=== PATIENT | female | born 1970 | race African-American/Black ===

== ENCOUNTER 2017-08-26 07:27 | Inpatient (IN) ==
[2017-08-26] MEDS ORDERED: methylPREDNISolone SOD SUC 125 MG/2 ML VIAL IV STA (07:47)
[2017-08-26] MEDS ORDERED: ALBUTEROL 2.5 MG/3 ML NEB RESP TX STA (07:47)
[2017-08-26] MEDS ORDERED: methylPREDNISolone SOD SUC 125 MG/2 ML VIAL ONE (07:54)
[2017-08-26 10:08] LABS: Basophils % 0.8 % (0.0-0.8); Eosinophils # 0.1 10*3/uL (0.0-0.87); Eosinophils % 1.7 % (0.00-10.9); Hematocrit 37.8 VOL% (35.7-47.0); Hemoglobin 12.9 GM/DL (12.0-16.0); Immature Granulocytes % 0.6 %; Immature Granulocytes Absolute 0.02 #; Lymphocytes # 1.8 10*3/uL (1.4-4.0); Lymphocytes % 49.9 % (21.3-54.2); Mean Corpuscular HGB Conc 34.1 GM/DL (32-36); Mean Corpuscular Hemoglobin 30 PG (27-34); Mean Corpuscular Volume 87.7 FL (87-102); Mean Platelet Volume 10.1 FL (9.6-12.0); Monocytes # 0.5 10*3/uL (0.11-0.8); Monocytes % 13.3 % (1.7-12.7); Neutrophils # 1.2 10*3/uL (1.4-7.4); Neutrophils % 33.7 % (38.7-73.9); Platelet Count 317 T/CUMM (130-400); Red Blood Count 4.31 MC/CUMM (3.8-5.5); Red Cell Distribution Width 15.1 % (9.3-17.3); White Blood Count 3.6 T/CUMM (4-12)
[2017-08-26 10:48] LABS: Eosinophils 1 % (0-10); Lymphocytes 51 % (20-55); Platelet Estimate Adequate; Segmented Neutrophils 33 % (50-85); Total Cells Counted 100
[2017-08-26 10:49] LABS: Giant Platelets Few; Hypochromasia 1+
[2017-08-26 10:50] LABS: Alanine Aminotransferase 21 U/L (13-56); Albumin 3.8 G/DL (3.4-5.0); Alkaline Phosphatase 77 U/L (45-117); Aspartate Amino Transferase 16 U/L (0-37); Bilirubin,Total < 0.39 MG/DL (0.2-1.0); Blood Urea Nitrogen 9 MG/DL (7-18); Calcium 8.8 MG/DL (8.5-10.1); Glucose 96 MG/DL (74-106); Osmolality,Calculated 277.4 MOS/KG (273-304); Potassium 3.7 MMOL/L (3.5-5.1); Sodium 140 MMOL/L (136-145); Total Protein 7.1 G/DL (6.4-8.3)
[2017-08-26] MEDS ORDERED: DOCUSATE SODIUM 100 MG CAPSULE PO PRN (11:34)
[2017-08-26] MEDS ORDERED: MORPHINE 2 MG/1 ML SYRINGE IV PRN (11:34)
[2017-08-26] MEDS ORDERED: ACETAMINOPHEN 325 MG TABLET PO PRN ×2 (11:34→12:17)
[2017-08-26] MEDS ORDERED: ZALEPLON 5 MG CAPSULE PO PRN (11:34)
[2017-08-26] MEDS ORDERED: PROMETHAZINE 25 MG/1 ML VIAL IM PRN (11:34)
[2017-08-26] MEDS ORDERED: diphenhydrAMINE CAP 25 MG CAPSULE PO PRN (11:34)
[2017-08-26] MEDS ORDERED: ONDANSETRON 4 MG/2 ML VIAL IV PRN ×2 (11:34→12:17)
[2017-08-26] MEDS ORDERED: SODIUM CHLORIDE 0.9% 1,000 ML IV SCH (12:00)
[2017-08-26] MEDS ORDERED: methylPREDNISolone SOD SUC 125 MG/2 ML VIAL IV SCH (12:17)
[2017-08-26] MEDS ORDERED: ENOXAPARIN 40 MG/0.4 ML SYRINGE SUBCUT SCH (12:17)
[2017-08-26] MEDS ORDERED: guaiFENesin/DM ER 600-30 MG TABLET PO PRN (12:17)
[2017-08-26] MEDS ORDERED: OMALIZUMAB 150 MG VIAL SUBCUT SCH (12:17)
[2017-08-26] MEDS ORDERED: GLUCAGON 1 MG VIAL IM PRN (12:17)
[2017-08-26] MEDS ORDERED: ALBUTEROL 2.5 MG/3 ML NEB RESP TX PRN (12:17)
[2017-08-26] MEDS ORDERED: DEXTROSE 50% 25 GM/50 ML VIAL IV PRN (12:17)
[2017-08-26] MEDS: SODIUM CHLORIDE 0.9% 1,000 ML IV SCH (12:31)
[2017-08-26] MEDS: MEROPENEM 1,000 MG in SODIUM CHLORIDE 0.9% 50 ML IV SCH (12:31)
[2017-08-26] MEDS: PANTOPRAZOLE 40 MG TABLET PO SCH (12:31)
[2017-08-26] MEDS: INSULIN LISPRO 100 UNIT/ML SUBCUT SCH ×3 (12:32→22:08)
[2017-08-26] MEDS: ALBUTEROL/IPRATROPIUM 3 ML NEB RESP TX SCH ×3 (14:33→19:47)
[2017-08-26] MEDS: ALBUTEROL 2.5 MG/3 ML NEB RESP TX SCH ×7 (14:33→21:43)
[2017-08-26] MEDS: BUDESONIDE/FORMOTEROL 160-4.5 INHALER 6 GM INH SCH ×2 (17:10→22:09)
[2017-08-26] MEDS: methylPREDNISolone SOD SUC 125 MG/2 ML VIAL IV SCH ×2 (17:11→22:08)
[2017-08-26] MEDS ORDERED: BUDESONIDE/FORMOTEROL 160-4.5 INHALER 6 GM INH SCH (21:00)
[2017-08-26] MEDS: MONTELUKAST 10 MG TABLET PO SCH (22:08)
[2017-08-26] MEDS: SIMVASTATIN 20 MG TABLET PO SCH (22:08)
[2017-08-26] MEDS: ENOXAPARIN 40 MG/0.4 ML SYRINGE SUBCUT SCH (22:08)
[2017-08-27] MEDS: ALBUTEROL/IPRATROPIUM 3 ML NEB RESP TX SCH ×4 (00:55→20:18)
[2017-08-27] MEDS: ALBUTEROL 2.5 MG/3 ML NEB RESP TX SCH ×6 (01:00→21:07)
[2017-08-27] MEDS: SODIUM CHLORIDE 0.9% 1,000 ML IV SCH ×2 (01:01→17:37)
[2017-08-27] MEDS: MEROPENEM 1,000 MG in SODIUM CHLORIDE 0.9% 50 ML IV SCH ×3 (01:01→21:17)
[2017-08-27] MEDS: methylPREDNISolone SOD SUC 125 MG/2 ML VIAL IV SCH ×4 (04:10→21:16)
[2017-08-27 06:49] LABS: Basophils % 0.1 % (0.0-0.8); Hematocrit 39.3 VOL% (35.7-47.0); Hemoglobin 13.3 GM/DL (12.0-16.0); Immature Granulocytes % 0.3 %; Immature Granulocytes Absolute 0.02 #; Lymphocytes # 1.2 10*3/uL (1.4-4.0); Lymphocytes % 17.4 % (21.3-54.2); Mean Corpuscular HGB Conc 33.8 GM/DL (32-36); Mean Corpuscular Hemoglobin 30 PG (27-34); Mean Corpuscular Volume 87.7 FL (87-102); Mean Platelet Volume 9.3 FL (9.6-12.0); Monocytes # 0.2 10*3/uL (0.11-0.8); Monocytes % 3.6 % (1.7-12.7); Neutrophils # 5.3 10*3/uL (1.4-7.4); Neutrophils % 78.6 % (38.7-73.9); Platelet Count 313 T/CUMM (130-400); Red Blood Count 4.48 MC/CUMM (3.8-5.5); Red Cell Distribution Width 15.1 % (9.3-17.3); White Blood Count 6.7 T/CUMM (4-12)
[2017-08-27 07:37] LABS: Blood Urea Nitrogen 9 MG/DL (7-18); Calcium 8.9 MG/DL (8.5-10.1); Glucose 164 MG/DL (74-106); Magnesium 2.3 MG/DL (1.8-2.4); Osmolality,Calculated 285.1 MOS/KG (273-304); Potassium 4.5 MMOL/L (3.5-5.1); Sodium 142 MMOL/L (136-145); Troponin I Only < 0.015 NG/ML (0.00-0.045)
[2017-08-27] MEDS: PANTOPRAZOLE 40 MG TABLET PO SCH (08:28)
[2017-08-27] MEDS: LORATADINE 10 MG TABLET PO SCH (08:28)
[2017-08-27] MEDS: guaiFENesin/DM ER 600-30 MG TABLET PO PRN (08:28)
[2017-08-27] MEDS: MULTIVITAMIN (CENTRUM) TABLET PO SCH (08:28)
[2017-08-27] MEDS: CALCIUM (CARBONATE)/VITAMIN D 600 MG-400 UNIT TABLET PO SCH (08:28)
[2017-08-27] MEDS: HYDROXYCHLOROQUINE 200 MG TABLET PO SCH (08:28)
[2017-08-27] MEDS: ACETAMINOPHEN 325 MG TABLET PO PRN (08:28)
[2017-08-27] MEDS: MOMETASONE 220 MCG/PUFF INHALER 14 DOSE INH SCH (08:29)
[2017-08-27] MEDS: INSULIN LISPRO 100 UNIT/ML SUBCUT SCH ×3 (08:34→16:34)
[2017-08-27] MEDS: BUDESONIDE/FORMOTEROL 160-4.5 INHALER 6 GM INH SCH ×2 (08:35→21:16)
[2017-08-27] MEDS ORDERED: PANTOPRAZOLE 40 MG TABLET PO SCH (09:00)
[2017-08-27] MEDS ORDERED: ALBUTEROL 2.5 MG/3 ML NEB RESP TX PRN (15:56)
[2017-08-27] MEDS ORDERED: ALBUTEROL 2.5 MG/3 ML NEB RESP TX SCH (19:00)
[2017-08-27] MEDS: MONTELUKAST 10 MG TABLET PO SCH (21:16)
[2017-08-27] MEDS: SIMVASTATIN 20 MG TABLET PO SCH (21:16)
[2017-08-27] MEDS: ENOXAPARIN 40 MG/0.4 ML SYRINGE SUBCUT SCH (21:16)
[2017-08-28] MEDS: ALBUTEROL/IPRATROPIUM 3 ML NEB RESP TX SCH ×4 (02:51→19:27)
[2017-08-28] MEDS: methylPREDNISolone SOD SUC 125 MG/2 ML VIAL IV SCH ×2 (03:10→10:38)
[2017-08-28] MEDS: SODIUM CHLORIDE 0.9% 1,000 ML IV SCH (03:11)
[2017-08-28] MEDS: INSULIN LISPRO 100 UNIT/ML SUBCUT SCH ×5 (03:12→21:25)
[2017-08-28 05:27] LABS: Basophils % 0.1 % (0.0-0.8); Hemoglobin 12.3 GM/DL (12.0-16.0); Immature Granulocytes % 0.7 %; Immature Granulocytes Absolute 0.09 #; Lymphocytes # 1.1 10*3/uL (1.4-4.0); Mean Corpuscular HGB Conc 34.2 GM/DL (32-36); Mean Corpuscular Hemoglobin 30 PG (27-34); Mean Corpuscular Volume 88.7 FL (87-102); Mean Platelet Volume 9.3 FL (9.6-12.0); Monocytes # 0.5 10*3/uL (0.11-0.8); Monocytes % 4.2 % (1.7-12.7); Neutrophils # 10.7 10*3/uL (1.4-7.4); Platelet Count 321 T/CUMM (130-400); Red Blood Count 4.06 MC/CUMM (3.8-5.5); Red Cell Distribution Width 15.7 % (9.3-17.3); White Blood Count 12.4 T/CUMM (4-12)
[2017-08-28 05:58] LABS: Calcium 8.6 MG/DL (8.5-10.1); Magnesium 2.6 MG/DL (1.8-2.4); Potassium 4.1 MMOL/L (3.5-5.1)
[2017-08-28] MEDS: MEROPENEM 1,000 MG in SODIUM CHLORIDE 0.9% 50 ML IV SCH (10:37)
[2017-08-28] MEDS: HYDROXYCHLOROQUINE 200 MG TABLET PO SCH (10:38)
[2017-08-28] MEDS: PANTOPRAZOLE 40 MG TABLET PO SCH (10:38)
[2017-08-28] MEDS: MULTIVITAMIN (CENTRUM) TABLET PO SCH (10:38)
[2017-08-28] MEDS: CALCIUM (CARBONATE)/VITAMIN D 600 MG-400 UNIT TABLET PO SCH (10:38)
[2017-08-28] MEDS: LORATADINE 10 MG TABLET PO SCH (10:38)
[2017-08-28] MEDS: BUDESONIDE/FORMOTEROL 160-4.5 INHALER 6 GM INH SCH ×2 (10:39→21:09)
[2017-08-28] MEDS: MOMETASONE 220 MCG/PUFF INHALER 14 DOSE INH SCH (10:39)
[2017-08-28] MEDS ORDERED: predniSONE 20 MG TABLET PO SCH (16:00)
[2017-08-28] MEDS ORDERED: AMOXICILLIN/CLAV 500 MG TABLET PO SCH (16:00)
[2017-08-28] MEDS ORDERED: methylPREDNISolone SOD SUC 40 MG/1 ML VIAL IV SCH (17:00)
[2017-08-28] MEDS: ACETAMINOPHEN 325 MG TABLET PO PRN (17:02)
[2017-08-28] MEDS: guaiFENesin/DM ER 600-30 MG TABLET PO PRN (17:26)
[2017-08-28] MEDS: MONTELUKAST 10 MG TABLET PO SCH (21:04)
[2017-08-28] MEDS: ENOXAPARIN 40 MG/0.4 ML SYRINGE SUBCUT SCH (21:04)
[2017-08-28] MEDS: SIMVASTATIN 20 MG TABLET PO SCH (21:04)
[2017-08-29] MEDS: ALBUTEROL/IPRATROPIUM 3 ML NEB RESP TX SCH ×2 (01:26→07:48)
[2017-08-29] MEDS ORDERED: predniSONE 20 MG TABLET PO SCH (06:00)
[2017-08-29] MEDS ORDERED: AMOXICILLIN/CLAV 500 MG TABLET PO SCH (06:00)
[2017-08-29] MEDS: INSULIN LISPRO 100 UNIT/ML SUBCUT SCH ×2 (09:42→12:01)
[2017-08-29] MEDS: CALCIUM (CARBONATE)/VITAMIN D 600 MG-400 UNIT TABLET PO SCH (11:02)
[2017-08-29] MEDS: HYDROXYCHLOROQUINE 200 MG TABLET PO SCH (11:02)
[2017-08-29] MEDS: LORATADINE 10 MG TABLET PO SCH (11:03)
[2017-08-29] MEDS: BUDESONIDE/FORMOTEROL 160-4.5 INHALER 6 GM INH SCH (11:03)
[2017-08-29] MEDS: PANTOPRAZOLE 40 MG TABLET PO SCH (11:03)
[2017-08-29] MEDS: MOMETASONE 220 MCG/PUFF INHALER 14 DOSE INH SCH (11:03)
[2017-08-29] MEDS: MULTIVITAMIN (CENTRUM) TABLET PO SCH (11:03)
[2017-08-29 11:19] VITALS: BP 143/89
== END 2017-08-29 12:45 | disposition home or self-care (01) | DRG 202 ==
LOC: N.ED 07:27 → N.EDINP 10:57 → N.2E 11:57
PROVIDERS: ADMIT Internal Medicine; ATTEND Internal Medicine

== ENCOUNTER 2018-12-31 19:57 | Observation (INO) ==
[2018-12-31] MEDS ORDERED: methylPREDNISolone SOD SUC 125 MG/2 ML VIAL IV STA (20:49)
[2018-12-31 21:00] LABS: Basophils % 0.2 % (0.0-0.8); Eosinophils # 0.3 10*3/uL (0.0-0.87); Eosinophils % 3.7 % (0.00-10.9); Hematocrit 37.8 VOL% (35.7-47.0); Hemoglobin 12.2 GM/DL (12.0-16.0); Immature Granulocytes % 0.5 %; Immature Granulocytes Absolute 0.04 #; Lymphocytes # 3.6 10*3/uL (1.4-4.0); Lymphocytes % 42.7 % (21.3-54.2); Mean Corpuscular HGB Conc 32.3 GM/DL (32-36); Mean Corpuscular Hemoglobin 29 PG (27-34); Mean Corpuscular Volume 91.1 FL (87-102); Mean Platelet Volume 10.8 FL (9.6-12.0); Monocytes # 0.6 10*3/uL (0.11-0.8); Monocytes % 7.7 % (1.7-12.7); Neutrophils # 3.8 10*3/uL (1.4-7.4); Neutrophils % 45.2 % (38.7-73.9); Platelet Count 332 T/CUMM (130-400); Red Blood Count 4.15 MC/CUMM (3.8-5.5); Red Cell Distribution Width 15.9 % (9.3-17.3); White Blood Count 8.3 T/CUMM (4-12)
[2018-12-31] MEDS ORDERED: ALBUTEROL 2.5 MG/3 ML NEB RESP TX SCH (21:00)
[2018-12-31 21:03] LABS: INR 0.9; PT Patient Result 9.4 SECS
[2018-12-31 21:58] LABS: Alanine Aminotransferase 19 U/L (13-56); Albumin 3.4 G/DL (3.4-5.0); Alkaline Phosphatase 109 U/L (45-117); Aspartate Amino Transferase 25 U/L (0-37); Bilirubin,Total < 0.39 MG/DL (0.2-1.0); Blood Urea Nitrogen 14 MG/DL (7-18); Calcium 8.4 MG/DL (8.5-10.1); Glucose 86 MG/DL (74-106); Osmolality,Calculated 276.5 MOS/KG (273-304); Potassium 4.4 MMOL/L (3.5-5.1); Sodium 139 MMOL/L (136-145); Total Protein 7.6 G/DL (6.4-8.3)
[2018-12-31] MEDS ORDERED: NICOTINE 21 MG/24 HR PATCH TRANSDERM PRN (23:03)
[2018-12-31] MEDS ORDERED: diphenhydrAMINE CAP 25 MG CAPSULE PO PRN (23:03)
[2018-12-31] MEDS ORDERED: ONDANSETRON 4 MG/2 ML VIAL IV PRN (23:03)
[2018-12-31] MEDS ORDERED: BISACODYL 5 MG TABLET PO PRN (23:03)
[2018-12-31] MEDS ORDERED: MORPHINE 4 MG/1 ML VIAL IV PRN (23:03)
[2018-12-31] MEDS ORDERED: guaiFENesin/DM ER 600-30 MG TABLET PO PRN (23:03)
[2018-12-31] MEDS ORDERED: ALBUTEROL 2.5 MG/3 ML NEB RESP TX PRN (23:03)
[2018-12-31 23:49] LABS: ABG Base Excess -0.7 MMOL/L (-2.5-2.5); ABG HCO3 23.8 MMOL/L (20-26); ABG Oxygen Saturation 96.8 % (95-100); ABG PCO2 39.7 MM HG (35-48); ABG PO2 91.2 MM HG (80-95); ABG TCO2 21.3 MMOL/L (23-27); Allen Test Positive; Pt O2 Delivery Device Room Air
[2019-01-01] MEDS: SODIUM CHLORIDE 0.9% 1,000 ML IV SCH ×2 (01:04→15:07)
[2019-01-01] MEDS: ALBUTEROL/IPRATROPIUM 3 ML NEB RESP TX SCH ×6 (03:38→23:55)
[2019-01-01] MEDS: methylPREDNISolone SOD SUC 40 MG/1 ML VIAL IV SCH ×3 (05:15→20:35)
[2019-01-01] MEDS: LORATADINE 10 MG TABLET PO SCH (08:43)
[2019-01-01] MEDS: PANTOPRAZOLE 40 MG TABLET PO SCH (08:43)
[2019-01-01] MEDS: HYDROXYCHLOROQUINE 200 MG TABLET PO SCH (08:43)
[2019-01-01] MEDS: MULTIVITAMIN (CENTRUM) TABLET PO SCH (08:43)
[2019-01-01] MEDS: CALCIUM (CARBONATE)/VITAMIN D 600 MG-400 UNIT TABLET PO SCH (08:43)
[2019-01-01] MEDS: MONTELUKAST 10 MG TABLET PO SCH (08:43)
[2019-01-01] MEDS ORDERED: MOMETASONE FUROATE 220 MCG INH SCH (09:00)
[2019-01-01] MEDS ORDERED: BECLOMETHASONE INH SCH (09:00)
[2019-01-01] MEDS ORDERED: NON-FORMULARY MEDICATION (Fluticasone 50 Mcg Nasal Spray [Flonase Nasal Spray] 2 SPRAY) BOTH NARES SCH (09:00)
[2019-01-01] MEDS ORDERED: NON-FORMULARY MEDICATION (Budesonide/Formoterol 160-4.5 [Symbicort 160-4.5] 2 PUFF) INH SCH (09:00)
[2019-01-01] MEDS: ACETAMINOPHEN 325 MG TABLET PO PRN ×2 (11:32→19:46)
[2019-01-01] MEDS: traZODone 50 MG TABLET PO PRN (20:34)
[2019-01-01] MEDS: SIMVASTATIN 40 MG TABLET PO SCH (20:34)
[2019-01-02] MEDS: SODIUM CHLORIDE 0.9% 1,000 ML IV SCH (03:27)
[2019-01-02] MEDS: ALBUTEROL/IPRATROPIUM 3 ML NEB RESP TX SCH ×6 (04:30→23:30)
[2019-01-02] MEDS: methylPREDNISolone SOD SUC 40 MG/1 ML VIAL IV SCH (05:29)
[2019-01-02] MEDS: MONTELUKAST 10 MG TABLET PO SCH (08:38)
[2019-01-02] MEDS: MULTIVITAMIN (CENTRUM) TABLET PO SCH (08:38)
[2019-01-02] MEDS: PANTOPRAZOLE 40 MG TABLET PO SCH (08:39)
[2019-01-02] MEDS: LORATADINE 10 MG TABLET PO SCH (08:39)
[2019-01-02] MEDS: CALCIUM (CARBONATE)/VITAMIN D 600 MG-400 UNIT TABLET PO SCH (08:39)
[2019-01-02] MEDS: HYDROXYCHLOROQUINE 200 MG TABLET PO SCH (08:42)
[2019-01-02] MEDS ORDERED: predniSONE 20 MG TABLET PO SCH (09:00)
[2019-01-02] MEDS: SIMVASTATIN 40 MG TABLET PO SCH (20:16)
[2019-01-02] MEDS: traZODone 50 MG TABLET PO PRN (20:16)
[2019-01-03] MEDS: ALBUTEROL/IPRATROPIUM 3 ML NEB RESP TX SCH ×2 (03:30→06:55)
[2019-01-03 08:51] VITALS: BP 120/75
[2019-01-13] MEDS ORDERED: OMALIZUMAB 150 MG VIAL SUBCUT SCH (09:00)
== END 2019-01-03 08:50 | disposition home or self-care (01) ==
LOC: N.EDINP 19:57 → N.ED 19:57 → SUPCPDRO 23:03 → SUATTDRO 23:03 → N.4E 01-01
PROVIDERS: ADMIT Internal Medicine; ATTEND Internal Medicine Cardiovascular Disease

== ENCOUNTER 2019-01-25 20:53 | Observation (INO) ==
[2019-01-25] MEDS ORDERED: ALBUTEROL/IPRATROPIUM 3 ML NEB RESP TX STA ×2 (22:16→23:49)
[2019-01-25] MEDS ORDERED: methylPREDNISolone SOD SUC 125 MG/2 ML VIAL IV STA (22:16)
[2019-01-25 22:56] LABS: VBG Base Excess 0.4 MEQ/L (0-4); VBG HCO3 24.8 MEQ/L (24-28); VBG PCO2 43.8 MMHG (41-51); VBG PH 7.379
[2019-01-25 23:14] LABS: Alanine Aminotransferase 24 U/L (13-56); Albumin 3.6 G/DL (3.4-5.0); Alkaline Phosphatase 117 U/L (45-117); Aspartate Amino Transferase 11 U/L (0-37); Bilirubin,Total < 0.39 MG/DL (0.2-1.0); Blood Urea Nitrogen 14 MG/DL (7-18); Calcium 9.3 MG/DL (8.5-10.1); Glucose 94 MG/DL (74-106); Osmolality,Calculated 279.4 MOS/KG (273-304); Potassium 4.1 MMOL/L (3.5-5.1); Sodium 140 MMOL/L (136-145); Total Protein 7.6 G/DL (6.4-8.3)
[2019-01-25 23:18] LABS: Basophils % 0.3 % (0.0-0.8); Eosinophils # 0.4 10*3/uL (0.0-0.87); Eosinophils % 4.6 % (0.00-10.9); Hemoglobin 11.6 GM/DL (12.0-16.0); Immature Granulocytes % 0.2 %; Immature Granulocytes Absolute 0.02 #; Lymphocytes # 4.3 10*3/uL (1.4-4.0); Lymphocytes % 48.9 % (21.3-54.2); Mean Corpuscular HGB Conc 31.4 GM/DL (32-36); Mean Corpuscular Hemoglobin 29 PG (27-34); Mean Corpuscular Volume 91.8 FL (87-102); Monocytes # 0.7 10*3/uL (0.11-0.8); Monocytes % 7.6 % (1.7-12.7); Neutrophils # 3.4 10*3/uL (1.4-7.4); Neutrophils % 38.4 % (38.7-73.9); Platelet Count 335 T/CUMM (130-400); Red Blood Count 4.03 MC/CUMM (3.8-5.5); Red Cell Distribution Width 15.6 % (9.3-17.3); White Blood Count 8.8 T/CUMM (4-12)
[2019-01-25 23:58] LABS: Anisocytosis 1+; Eosinophils 3 % (0-10); Lymphocytes 60 % (20-55); Platelet Estimate Adequate; Segmented Neutrophils 31 % (50-85); Total Cells Counted 100
[2019-01-26] MEDS ORDERED: diphenhydrAMINE CAP 25 MG CAPSULE PO PRN (00:26)
[2019-01-26] MEDS ORDERED: MORPHINE 4 MG/1 ML VIAL IV PRN (00:26)
[2019-01-26] MEDS ORDERED: BISACODYL 5 MG TABLET PO PRN (00:26)
[2019-01-26] MEDS ORDERED: ONDANSETRON 4 MG/2 ML VIAL IV PRN (00:26)
[2019-01-26] MEDS ORDERED: ACETAMINOPHEN 325 MG TABLET PO PRN (00:26)
[2019-01-26] MEDS ORDERED: NICOTINE 21 MG/24 HR PATCH TRANSDERM PRN (00:26)
[2019-01-26] MEDS ORDERED: ZALEPLON 5 MG CAPSULE PO PRN (00:26)
[2019-01-26] MEDS ORDERED: guaiFENesin/DM ER 600-30 MG TABLET PO PRN (00:26)
[2019-01-26] MEDS ORDERED: ALBUTEROL 2.5 MG/3 ML NEB RESP TX PRN (00:26)
[2019-01-26] MEDS ORDERED: IPRATROPIUM INH PRN (01:12)
[2019-01-26] MEDS ORDERED: [UNRECOGNIZED DRUG - OTHER] INH PRN (01:12)
[2019-01-26] MEDS ORDERED: ALBUTEROL INH PRN (01:12)
[2019-01-26] MEDS ORDERED: NON-FORMULARY MEDICATION (Albuterol Sulfate [Ventolin Hfa] 2 PUFF) INH PRN (01:12)
[2019-01-26] MEDS: traZODone 50 MG TABLET PO SCH ×2 (02:26→20:18)
[2019-01-26] MEDS: ALBUTEROL/IPRATROPIUM 3 ML NEB RESP TX SCH ×4 (02:48→19:37)
[2019-01-26] MEDS ORDERED: BECLOMETHASONE INH SCH (09:00)
[2019-01-26] MEDS ORDERED: MOMETASONE FUROATE 220 MCG INH SCH (09:00)
[2019-01-26] MEDS: MULTIVITAMIN (CENTRUM) TABLET PO SCH (09:37)
[2019-01-26] MEDS: CALCIUM (CARBONATE)/VITAMIN D 600 MG-400 UNIT TABLET PO SCH (09:37)
[2019-01-26] MEDS: PANTOPRAZOLE 40 MG TABLET PO SCH (09:38)
[2019-01-26] MEDS: MONTELUKAST 10 MG TABLET PO SCH (09:38)
[2019-01-26] MEDS: BUDESONIDE/FORMOTEROL 160-4.5 INHALER 6 GM INH SCH ×2 (10:38→20:18)
[2019-01-26] MEDS: FLUTICASONE 50 MCG NASAL SPRAY 16 GM BOTTLE BOTH NARES SCH (10:39)
[2019-01-26] MEDS: methylPREDNISolone SOD SUC 40 MG/1 ML VIAL IV SCH ×2 (10:54→22:53)
[2019-01-26] MEDS: SIMVASTATIN 40 MG TABLET PO SCH (20:17)
[2019-01-27] MEDS: ALBUTEROL/IPRATROPIUM 3 ML NEB RESP TX SCH ×4 (01:02→19:32)
[2019-01-27 04:53] LABS: Basophils % 0.2 % (0.0-0.8); Hematocrit 37.3 VOL% (35.7-47.0); Hemoglobin 11.7 GM/DL (12.0-16.0); Immature Granulocytes % 0.7 %; Immature Granulocytes Absolute 0.08 #; Lymphocytes # 1.3 10*3/uL (1.4-4.0); Lymphocytes % 11.8 % (21.3-54.2); Mean Corpuscular HGB Conc 31.4 GM/DL (32-36); Mean Corpuscular Hemoglobin 29 PG (27-34); Mean Corpuscular Volume 92.6 FL (87-102); Mean Platelet Volume 9.4 FL (9.6-12.0); Monocytes # 0.4 10*3/uL (0.11-0.8); Monocytes % 3.3 % (1.7-12.7); Neutrophils # 9.4 10*3/uL (1.4-7.4); Platelet Count 366 T/CUMM (130-400); Red Blood Count 4.03 MC/CUMM (3.8-5.5); Red Cell Distribution Width 15.9 % (9.3-17.3); White Blood Count 11.2 T/CUMM (4-12)
[2019-01-27 05:09] LABS: Calcium 8.5 MG/DL (8.5-10.1); Osmolality,Calculated 286.4 MOS/KG (273-304); Potassium 4.5 MMOL/L (3.5-5.1)
[2019-01-27] MEDS: PANTOPRAZOLE 40 MG TABLET PO SCH (09:52)
[2019-01-27] MEDS: MONTELUKAST 10 MG TABLET PO SCH (09:52)
[2019-01-27] MEDS: MULTIVITAMIN (CENTRUM) TABLET PO SCH (09:52)
[2019-01-27] MEDS: CALCIUM (CARBONATE)/VITAMIN D 600 MG-400 UNIT TABLET PO SCH (09:52)
[2019-01-27] MEDS: FLUTICASONE 50 MCG NASAL SPRAY 16 GM BOTTLE BOTH NARES SCH (09:52)
[2019-01-27] MEDS: BUDESONIDE/FORMOTEROL 160-4.5 INHALER 6 GM INH SCH ×2 (09:52→21:04)
[2019-01-27] MEDS: methylPREDNISolone SOD SUC 40 MG/1 ML VIAL IV SCH ×2 (11:42→23:43)
[2019-01-27] MEDS: traZODone 50 MG TABLET PO SCH (21:03)
[2019-01-27] MEDS: SIMVASTATIN 40 MG TABLET PO SCH (21:04)
[2019-01-28] MEDS: ALBUTEROL/IPRATROPIUM 3 ML NEB RESP TX SCH ×4 (00:41→19:14)
[2019-01-28] MEDS: CALCIUM (CARBONATE)/VITAMIN D 600 MG-400 UNIT TABLET PO SCH (08:28)
[2019-01-28] MEDS: MONTELUKAST 10 MG TABLET PO SCH (08:28)
[2019-01-28] MEDS: PANTOPRAZOLE 40 MG TABLET PO SCH (08:28)
[2019-01-28] MEDS: MULTIVITAMIN (CENTRUM) TABLET PO SCH (08:28)
[2019-01-28] MEDS: FLUTICASONE 50 MCG NASAL SPRAY 16 GM BOTTLE BOTH NARES SCH (08:29)
[2019-01-28] MEDS: BUDESONIDE/FORMOTEROL 160-4.5 INHALER 6 GM INH SCH ×2 (08:29→21:04)
[2019-01-28] MEDS: methylPREDNISolone SOD SUC 40 MG/1 ML VIAL IV SCH (10:17)
[2019-01-28] MEDS ORDERED: AZITHROMYCIN 250 MG TABLET PO ONE (16:22)
[2019-01-28] MEDS: CETIRIZINE 10 MG TABLET PO SCH (16:32)
[2019-01-28] MEDS: traZODone 50 MG TABLET PO SCH (21:05)
[2019-01-28] MEDS: SIMVASTATIN 40 MG TABLET PO SCH (21:05)
[2019-01-29] MEDS: ALBUTEROL/IPRATROPIUM 3 ML NEB RESP TX SCH ×2 (00:04→07:09)
[2019-01-29] MEDS: methylPREDNISolone SOD SUC 40 MG/1 ML VIAL IV SCH ×2 (02:37→10:28)
[2019-01-29] MEDS ORDERED: AZITHROMYCIN 250 MG TABLET PO SCH (09:00)
[2019-01-29] MEDS: FLUTICASONE 50 MCG NASAL SPRAY 16 GM BOTTLE BOTH NARES SCH (10:28)
[2019-01-29] MEDS: CALCIUM (CARBONATE)/VITAMIN D 600 MG-400 UNIT TABLET PO SCH (10:28)
[2019-01-29] MEDS: BUDESONIDE/FORMOTEROL 160-4.5 INHALER 6 GM INH SCH (10:28)
[2019-01-29] MEDS: MONTELUKAST 10 MG TABLET PO SCH (10:29)
[2019-01-29] MEDS: MULTIVITAMIN (CENTRUM) TABLET PO SCH (10:30)
[2019-01-29] MEDS: PANTOPRAZOLE 40 MG TABLET PO SCH (10:30)
[2019-01-29] MEDS: CETIRIZINE 10 MG TABLET PO SCH (10:31)
[2019-01-29 11:17] VITALS: BP 120/90
== END 2019-01-29 14:25 | disposition home or self-care (01) ==
LOC: N.ED 20:53 → N.EDINP 20:53 → SUATTDRO 01-26 00:26 → N.5E 01-26 00:49
PROVIDERS: ADMIT Internal Medicine; ATTEND Internal Medicine

== ENCOUNTER 2019-08-19 15:32 | Observation (INO) ==
[2019-08-19] MEDS ORDERED: ONDANSETRON 4 MG/2 ML VIAL IV STA (15:58)
[2019-08-19] MEDS ORDERED: AZITHROMYCIN INJ 500 MG in SODIUM CHLORIDE 0.9% 250 ML IV STA (15:58)
[2019-08-19] MEDS ORDERED: methylPREDNISolone SOD SUC 125 MG/2 ML VIAL IV STA (15:58)
[2019-08-19] MEDS ORDERED: ALBUTEROL NEB SOLN 5 MG/ML 20 ML/BOTTLE RESP TX SCH (16:00)
[2019-08-19] MEDS ORDERED: PANTOPRAZOLE 40 MG VIAL IV STA (16:04)
[2019-08-19] MEDS ORDERED: KETOROLAC 30 MG/1 ML VIAL IV STA (16:04)
[2019-08-19 16:49] LABS: Basophils % 0.4 % (0.0-0.8); Eosinophils # 0.3 10*3/uL (0.0-0.87); Eosinophils % 4.1 % (0.00-10.9); Hematocrit 40.2 VOL% (35.7-47.0); Immature Granulocytes % 0.4 %; Immature Granulocytes Absolute 0.03 #; Lymphocytes # 3.4 10*3/uL (1.4-4.0); Lymphocytes % 45.2 % (21.3-54.2); Mean Corpuscular HGB Conc 32.3 GM/DL (32-36); Mean Corpuscular Volume 90.7 FL (87-102); Mean Platelet Volume 9.1 FL (9.6-12.0); Neutrophils % 42.9 % (38.7-73.9); Platelet Count 323 T/CUMM (130-400); Red Blood Count 4.43 MC/CUMM (3.8-5.5); Red Cell Distribution Width 15.7 % (9.3-17.3); White Blood Count 7.5 T/CUMM (4-12)
[2019-08-19 17:02] LABS: INR 0.9; PT Patient Result 9.6 SECS (9.6-12.2); Partial Thromboplastin Time 24.7 SECS (20.8-36.0)
[2019-08-19 17:23] LABS: Alanine Aminotransferase 24 U/L (13-56); Alkaline Phosphatase 97 U/L (45-117); Aspartate Amino Transferase 11 U/L (0-37); Bilirubin,Total < 0.39 MG/DL (0.2-1.0); Blood Urea Nitrogen 14 MG/DL (7-18); Calcium 9.3 MG/DL (8.5-10.1); Estimated Glom Filtration Rate 111 ML/MIN; Glucose 81 MG/DL (74-106); Osmolality,Calculated 282.1 MOS/KG (273-304); Total Protein 8.1 G/DL (6.4-8.3); Troponin I < 0.015 NG/ML (0.00-0.045)
[2019-08-19] MEDS ORDERED: ONDANSETRON 4 MG/2 ML VIAL IV PRN (19:09)
[2019-08-19] MEDS ORDERED: OMALIZUMAB SUBCUT SCH (19:30)
[2019-08-19 20:08] LABS: Apearance,Urine CLEAR (Clear); Bacteria,Urine Occasional /HPF (Few); Bilirubin,Urine Negative (Negative); Blood, Urine Negative (Negative); Glucose,Urine (UA) Negative (Negative); Ketones,Urine Negative (Negative); Mucus,Urine Occasional /LPF (Occasional); Nitrite,Urine Negative (Negative); Protein,Urine Negative; RBC,Urine 2 /HPF (0-4); Squamous Epithelial Cell,Urine Occasional /HPF (0-10); Urine Color Straw (Yellow); Urine Specific Gravity 1.012 (1.001-1.035); Urine Urobilinogen < 2.0 EU/DL (0.2-1.0); WBC,Urine 4 /HPF (0-6)
[2019-08-19 20:13] LABS: Barbiturates Screen,Urine Negative (Negative); Benzodiazepines Screen,Urine Negative (Negative); Cannabinoid Screen,Urine Negative (Negative); Opiate Screen,Urine Negative (Negative); Phencyclidine Screen,Urine Negative (Negative)
[2019-08-19] MEDS: SIMVASTATIN 40 MG TABLET PO SCH (21:15)
[2019-08-19] MEDS: methylPREDNISolone SOD SUC 125 MG/2 ML VIAL IV SCH (21:15)
[2019-08-19] MEDS: MONTELUKAST 10 MG TABLET PO SCH (21:15)
[2019-08-19] MEDS: traZODone 50 MG TABLET PO SCH (22:08)
[2019-08-19] MEDS: FLUTICASONE/SALMETEROL 500-50 DISKUS 14 DOSE INH SCH (23:04)
[2019-08-20] MEDS: ALBUTEROL 2.5 MG/3 ML NEB RESP TX SCH ×7 (00:35→23:23)
[2019-08-20] MEDS: methylPREDNISolone SOD SUC 125 MG/2 ML VIAL IV SCH ×4 (04:46→20:40)
[2019-08-20 05:05] LABS: Basophils % 0.2 % (0.0-0.8); Hematocrit 39.3 VOL% (35.7-47.0); Hemoglobin 12.7 GM/DL (12.0-16.0); Immature Granulocytes % 0.6 %; Immature Granulocytes Absolute 0.04 #; Lymphocytes % 15.8 % (21.3-54.2); Mean Corpuscular HGB Conc 32.3 GM/DL (32-36); Mean Corpuscular Volume 91.6 FL (87-102); Mean Platelet Volume 9.6 FL (9.6-12.0); Monocytes % 1.1 % (1.7-12.7); Neutrophils % 82.3 % (38.7-73.9); Platelet Count 348 T/CUMM (130-400); Red Blood Count 4.29 MC/CUMM (3.8-5.5); White Blood Count 6.3 T/CUMM (4-12)
[2019-08-20 06:21] LABS: Calcium 9.5 MG/DL (8.5-10.1); Osmolality,Calculated 287.4 MOS/KG (273-304); Thyroid Stimulating Hormone 0.193 uIU/ml (0.358-3.74)
[2019-08-20] MEDS: PANTOPRAZOLE 40 MG TABLET PO SCH (08:42)
[2019-08-20] MEDS: HYDROXYCHLOROQUINE 200 MG TABLET PO SCH (08:42)
[2019-08-20] MEDS: AZITHROMYCIN INJ 500 MG in SODIUM CHLORIDE 0.9% 250 ML IV SCH (08:45)
[2019-08-20] MEDS: FLUTICASONE/SALMETEROL 500-50 DISKUS 14 DOSE INH SCH ×2 (08:45→20:41)
[2019-08-20] MEDS: ACETAMINOPHEN 325 MG TABLET PO PRN (10:48)
[2019-08-20] MEDS ORDERED: KETOROLAC 30 MG/1 ML VIAL IV ONE (14:30)
[2019-08-20] MEDS: SIMVASTATIN 40 MG TABLET PO SCH (20:40)
[2019-08-20] MEDS: MONTELUKAST 10 MG TABLET PO SCH (20:40)
[2019-08-20] MEDS: traZODone 50 MG TABLET PO SCH (21:31)
[2019-08-21] MEDS: ALBUTEROL 2.5 MG/3 ML NEB RESP TX SCH ×3 (03:04→11:05)
[2019-08-21] MEDS: methylPREDNISolone SOD SUC 125 MG/2 ML VIAL IV SCH ×2 (03:29→09:41)
[2019-08-21] MEDS: ACETAMINOPHEN 325 MG TABLET PO PRN (09:42)
[2019-08-21] MEDS: HYDROXYCHLOROQUINE 200 MG TABLET PO SCH (09:42)
[2019-08-21] MEDS: PANTOPRAZOLE 40 MG TABLET PO SCH (09:43)
[2019-08-21] MEDS: AZITHROMYCIN INJ 500 MG in SODIUM CHLORIDE 0.9% 250 ML IV SCH ×2 (09:43→14:10)
[2019-08-21] MEDS: FLUTICASONE/SALMETEROL 500-50 DISKUS 14 DOSE INH SCH (09:46)
[2019-08-21 12:09] VITALS: BP 135/87
[2019-08-21] MEDS ORDERED: AZITHROMYCIN 250 MG TABLET PO SCH (13:30)
== END 2019-08-21 14:08 | disposition home or self-care (01) ==
LOC: N.EDINP 15:32 → N.ED 15:32 → SUATTDRO 19:09 → N.2E 19:26
PROVIDERS: ADMIT Family Medicine; ATTEND Internal Medicine

== ENCOUNTER 2019-10-10 13:36 | Inpatient (IN) ==
[2019-10-10] MEDS ORDERED: MAGNESIUM SULF RIDER 2 GM in PREMIX 1 EACH IV STA (14:41)
[2019-10-10] MEDS ORDERED: cefTRIAXone 1,000 MG in SODIUM CHLORIDE 0.9% 100 ML IV STA (14:41)
[2019-10-10] MEDS ORDERED: ONDANSETRON 4 MG/2 ML VIAL IV STA (14:41)
[2019-10-10] MEDS ORDERED: methylPREDNISolone SOD SUC 125 MG/2 ML VIAL IV STA (14:41)
[2019-10-10] MEDS ORDERED: ALBUTEROL 2.5 MG/3 ML NEB RESP TX SCH (15:00)
[2019-10-10 15:22] LABS: Basophils % 0.4 % (0.0-0.8); Eosinophils # 0.4 10*3/uL (0.0-0.87); Eosinophils % 5.9 % (0.00-10.9); Hematocrit 40.3 VOL% (35.7-47.0); Immature Granulocytes % 0.3 %; Immature Granulocytes Absolute 0.02 #; Lymphocytes # 3.3 10*3/uL (1.4-4.0); Lymphocytes % 47.3 % (21.3-54.2); Mean Corpuscular HGB Conc 32.3 GM/DL (32-36); Mean Corpuscular Volume 92.2 FL (87-102); Mean Platelet Volume 9.1 FL (9.6-12.0); Monocytes % 5.9 % (1.7-12.7); Neutrophils % 40.2 % (38.7-73.9); Platelet Count 372 T/CUMM (130-400); Red Blood Count 4.37 MC/CUMM (3.8-5.5); Red Cell Distribution Width 15.7 % (9.3-17.3)
[2019-10-10 15:36] LABS: INR 0.9; PT Patient Result 9.8 SECS (9.6-12.2); Partial Thromboplastin Time 28.7 SECS (20.8-36.0)
[2019-10-10 15:39] LABS: Alanine Aminotransferase 32 U/L (13-56); Albumin 3.8 G/DL (3.4-5.0); Alkaline Phosphatase 109 U/L (45-117); Aspartate Amino Transferase 21 U/L (0-37); Bilirubin,Total < 0.39 MG/DL (0.2-1.0); Blood Urea Nitrogen 10 MG/DL (7-18); Calcium 9.3 MG/DL (8.5-10.1); Estimated Glom Filtration Rate 135 ML/MIN; Glucose 84 MG/DL (74-106); Osmolality,Calculated 280.1 MOS/KG (273-304); Total Protein 7.8 G/DL (6.4-8.3); Troponin I < 0.015 NG/ML (0.00-0.045)
[2019-10-10 17:00] LABS: Apearance,Urine CLEAR (Clear); Bilirubin,Urine Negative (Negative); Blood, Urine Negative (Negative); Glucose,Urine (UA) Negative (Negative); Ketones,Urine Negative (Negative); Mucus,Urine Occasional /LPF (Occasional); Nitrite,Urine Negative (Negative); Protein,Urine Negative; Squamous Epithelial Cell,Urine Occasional /HPF (0-10); Urine Color Yellow (Yellow); Urine Urobilinogen < 2.0 EU/DL (0.2-1.0)
[2019-10-10 17:06] LABS: Barbiturates Screen,Urine Negative (Negative); Benzodiazepines Screen,Urine Negative (Negative); Cannabinoid Screen,Urine Negative (Negative); Opiate Screen,Urine Negative (Negative); Phencyclidine Screen,Urine Negative (Negative)
[2019-10-10] MEDS ORDERED: traZODone 50 MG TABLET PO PRN (17:51)
[2019-10-10] MEDS ORDERED: FLUTICASONE 50 MCG NASAL SPRAY 16 GM BOTTLE BOTH NARES PRN (17:51)
[2019-10-10] MEDS ORDERED: ALBUTEROL 2.5 MG/3 ML NEB RESP TX PRN (17:51)
[2019-10-10] MEDS ORDERED: ONDANSETRON 4 MG/2 ML VIAL IV PRN (17:59)
[2019-10-10] MEDS ORDERED: OMALIZUMAB SUBCUT SCH (18:00)
[2019-10-10] MEDS: ALBUTEROL/IPRATROPIUM 3 ML NEB RESP TX SCH ×2 (20:27→23:20)
[2019-10-10] MEDS: SIMVASTATIN 40 MG TABLET PO SCH (20:40)
[2019-10-10] MEDS: ACETAMINOPHEN 325 MG TABLET PO PRN (20:41)
[2019-10-10] MEDS: ENOXAPARIN 40 MG/0.4 ML SYRINGE SUBCUT SCH (20:41)
[2019-10-10] MEDS: methylPREDNISolone SOD SUC 40 MG/1 ML VIAL IV SCH (23:06)
[2019-10-11] MEDS: ALBUTEROL/IPRATROPIUM 3 ML NEB RESP TX SCH ×5 (02:37→19:40)
[2019-10-11 05:12] LABS: Hemoglobin 12.6 GM/DL (12.0-16.0); Immature Granulocytes % 0.7 %; Immature Granulocytes Absolute 0.04 #; Lymphocytes % 17.3 % (21.3-54.2); Mean Corpuscular HGB Conc 32.3 GM/DL (32-36); Mean Corpuscular Volume 92.2 FL (87-102); Mean Platelet Volume 9.3 FL (9.6-12.0); Monocytes % 1.9 % (1.7-12.7); Neutrophils % 80.1 % (38.7-73.9); Platelet Count 353 T/CUMM (130-400); Red Blood Count 4.23 MC/CUMM (3.8-5.5); Red Cell Distribution Width 15.9 % (9.3-17.3); White Blood Count 5.7 T/CUMM (4-12)
[2019-10-11 05:35] LABS: Calcium 8.8 MG/DL (8.5-10.1); Osmolality,Calculated 290.1 MOS/KG (273-304)
[2019-10-11] MEDS: BUDESONIDE/FORMOTEROL 160-4.5 INHALER 6 GM INH SCH ×2 (06:05→19:12)
[2019-10-11] MEDS: methylPREDNISolone SOD SUC 40 MG/1 ML VIAL IV SCH ×2 (06:08→15:08)
[2019-10-11] MEDS ORDERED: HYDROCORTISONE 1% OINT 28.35 GM TUBE TOP SCH (09:00)
[2019-10-11] MEDS ORDERED: HYDROXYCHLOROQUINE 200 MG TABLET PO SCH (09:00)
[2019-10-11] MEDS: CALCIUM (CARBONATE)/VITAMIN D 600 MG-400 UNIT TABLET PO SCH (09:59)
[2019-10-11] MEDS: MAGNESIUM OXIDE 400 MG TABLET PO SCH (09:59)
[2019-10-11] MEDS: ACETAMINOPHEN 325 MG TABLET PO PRN (09:59)
[2019-10-11] MEDS: PANTOPRAZOLE 40 MG TABLET PO SCH (09:59)
[2019-10-11] MEDS: MONTELUKAST 10 MG TABLET PO SCH (09:59)
[2019-10-11] MEDS: MELOXICAM 7.5 MG TABLET PO SCH (09:59)
[2019-10-11] MEDS: MULTIVITAMIN (CENTRUM) TABLET PO SCH (09:59)
[2019-10-11] MEDS: cefTRIAXone 1,000 MG in SYRINGE 1 EACH IV SCH (10:00)
[2019-10-11] MEDS: LORATADINE 10 MG TABLET PO SCH (10:00)
[2019-10-11] MEDS: MOMETASONE INH SCH (10:08)
[2019-10-11] MEDS: ENOXAPARIN 40 MG/0.4 ML SYRINGE SUBCUT SCH (23:10)
[2019-10-11] MEDS: SIMVASTATIN 40 MG TABLET PO SCH (23:12)
[2019-10-12] MEDS: ALBUTEROL/IPRATROPIUM 3 ML NEB RESP TX SCH ×4 (00:20→11:20)
[2019-10-12] MEDS: methylPREDNISolone SOD SUC 40 MG/1 ML VIAL IV SCH ×2 (01:50→08:17)
[2019-10-12] MEDS: BUDESONIDE/FORMOTEROL 160-4.5 INHALER 6 GM INH SCH (07:09)
[2019-10-12 07:41] VITALS: BP 137/72
[2019-10-12] MEDS: MELOXICAM 7.5 MG TABLET PO SCH (08:17)
[2019-10-12] MEDS: CALCIUM (CARBONATE)/VITAMIN D 600 MG-400 UNIT TABLET PO SCH (08:17)
[2019-10-12] MEDS: MAGNESIUM OXIDE 400 MG TABLET PO SCH (08:17)
[2019-10-12] MEDS: LORATADINE 10 MG TABLET PO SCH (08:17)
[2019-10-12] MEDS: MULTIVITAMIN (CENTRUM) TABLET PO SCH (08:17)
[2019-10-12] MEDS: PANTOPRAZOLE 40 MG TABLET PO SCH (08:18)
[2019-10-12] MEDS: cefTRIAXone 1,000 MG in SYRINGE 1 EACH IV SCH (08:18)
[2019-10-12] MEDS: MOMETASONE INH SCH (08:19)
[2019-10-12] MEDS: MONTELUKAST 10 MG TABLET PO SCH (08:19)
[2019-10-12] MEDS ORDERED: HYDROCORTISONE 1% CREAM 28 GM TUBE TOP SCH (09:00)
[2019-10-12] MEDS: ACETAMINOPHEN 325 MG TABLET PO PRN (10:22)
== END 2019-10-12 12:56 | disposition home or self-care (01) | DRG 202 ==
LOC: N.ED 13:36 → SUATTDRO 17:35 → N.EDINP 17:35 → N.5E 18:44
PROVIDERS: ADMIT Internal Medicine; ATTEND Emergency Medicine